=== PATIENT | female | born 1960 | race Caucasian/White ===

== ENCOUNTER 2021-10-24 08:54 | Day surgery (SDC) | payer BC ==
[2021-10-24] MEDS ORDERED: Marcaine Mpf 0.5% Vial 30 Ml IJ ONE (08:55)
[2021-10-24] MEDS ORDERED: CEFAZOLIN 2 GM-D5W BAG** 2 GM/50 ML ML IV SCH (09:00)
[2021-10-24] MEDS ORDERED: Lactated Ringers 1,000 ML IV SCH (09:00)
[2021-10-24] MEDS ORDERED: Lactated Ringers 1,000 ML IV ONE ×2 (09:01→11:34)
[2021-10-24] MEDS ORDERED: CEFAZOLIN 2 GM-D5W BAG** 2 GM/50 ML ML IV ONE (09:01)
[2021-10-24 09:32] LABS: ALBUMIN 4.4 g/dL (3.5-5.0); ALKALINE PHOSPHATASE 96 U/L (38-126); ANION GAP 11.2 MEQ/L (5-15); BLOOD UREA NITROGEN 20 mg/dL (7-17); CHLORIDE 104 mmol/L (98-107); Carbon Dioxide 28 mmol/L (22-30); Creatinine 1 0.75 mg/dL (0.52-1.04); EST GLOMERULAR FILTRATION RATE > 60.0 ML/MIN; Glucose 91 mg/dL (74-106); Potassium 4.2 mmol/L (3.5-5.1); SGOT/AST 21 U/L (14-36); SGPT/ALT 16 U/L (0-35); SODIUM 140 mmol/L (137-145); Total Protein 7.3 g/dL (6.3-8.2)
[2021-10-24] MEDS ORDERED: XYLOCAINE 1% HCL 20 ML MDV ONE (11:34)
[2021-10-24] MEDS ORDERED: Versed 2 MG/2 ML Injection ONE (11:57)
[2021-10-24] MEDS ORDERED: Xylocaine-Mpf 2% 5 Ml Vial ONE (11:57)
[2021-10-24] MEDS ORDERED: Zofran 4 MG/2 ML VIAL ONE (11:57)
[2021-10-24] MEDS ORDERED: DIPRIVAN 200 MG/20 ML IV ONE (11:57)
[2021-10-24] MEDS ORDERED: SUBLIMAZE 100 MCG/2 ML ONE (11:57)
[2021-10-24] MEDS ORDERED: TORAdol 30 mg Injection ONE (13:35)
--- NOTE | 2021-10-24 13:56 | XRAY ---
Indication: Right midfoot exostectomy. Intraoperative fluoroscopy provided for 31 seconds. 3 digital spot images submitted for interpretation demonstrate exostectomy medial first cuneiform. Correlate with intraoperative findings/report.
[2021-10-24 14:29] VITALS: O2SAT 96
[2021-10-24 15:06] VITALS: BP 158/93; PULSE 56
--- NOTE | 2021-10-24 22:38 | XRAY ---
31 seconds of fluoroscopy was used in surgery for a right midfoot exostectomy.
--- NOTE | 2021-10-28 13:24 | OP ---
SURGERY DATE/TIME: 10/24/2021 1258 PREOPERATIVE DIAGNOSES: 1) Pain right foot. 2) Osteoarthritis of mid foot. 3) Ingrown toenail. POSTOPERATIVE DIAGNOSES: 1) Pain right foot. 2) Osteoarthritis of mid foot. 3) Ingrown toenail. PROCEDURES: 1) Evacuation of nail matrixectomy with Zadik procedure. 2) Exostectomy of mid foot medial cuneiform. 3) Exostectomy of metatarsal base. SURGEON: Atif Payton DPM. CLOTH BALE HEADER: None. ANESTHESIA: Monitored anesthesia care with preoperative block consisting of Samaniego block to the right foot. ESTIMATED BLOOD LOSS: Less than 3 cc. MATERIALS: 4-0 Monocryl, 3-0 Nylon. INJECTABLES: 30 cc of 1:1 mixture of 1% lidocaine plain and 0.5% bupivacaine plain injected in a Samaniego block-type fashion. INDICATIONS FOR PROCEDURE: Monalisa is a very pleasant 61-year-old female known to my service for ingrown toenails to the right medial border. The patient did fail a matrixectomy a long while back with remainder of the nail still continuing to grow out with the use of 89% phenol. The patient also does have spurring of the dorsal aspect of the mid foot coming out to the base of the first metatarsal as well as the medial cuneiform. From that standpoint the patient wished to proceed with surgical intervention in order to eliminate the pain which she was experiencing at the dorsal aspect of the foot and as well as the ingrown toenail of the right foot. For those reasons all risks, complications and benefits of surgical intervention were discussed with the patient at length including but not limited to infection, hematoma, seroma, possibility of failure of surgical intervention and possibility of need for surgical intervention at a later date. The patient understands all of these risks and wishes to proceed. No guarantees were provided as to the outcome of the surgical intervention. Plenty of time was allowed for her and her to ask questions which were answered to their apparent satisfaction. No guarantees were provided as to the outcome. It is with that we decided to proceed. DESCRIPTION OF PROCEDURE AND FINDINGS: The patient was brought into the OR and placed on the OR table in the supine position. At this time MAC anesthesia was administered until the patient was lightly sedated. Ankle tourniquet was applied to the patient's right foot. The foot was then prepped and draped in typical sterile fashion and lowered onto the surgical field. At this time a Samaniego block was performed utilizing 30 cc of a 1:1 mixture of 1% lidocaine plain and 0.5% bupivacaine plain. At this time the Zadik portion of the procedure was performed where a diagonal incision was made at the apex of the nail matrix. At this time a Redwood was utilized to lift the nail from the nail bed. The nail matrix was identified and incised utilizing a 15 blade. The under surface of the nail fold was curetted, rongeured and removed utilizing a 15 blade. Following this cauterization took place utilizing a Bovie. Two simple interrupted stitches were applied at the base of the nail bed. Following this attention was directed to the dorsal medial aspect of the right foot where the spur was easily identified through palpation of the skin. At this time an incision was made utilizing a 15 blade which was deepened along the fascial plane utilizing a combination of sharp and blunt dissection being careful not to damage neurovascular structures. At this time the exostosis was identified and removed utilizing rongeurs and the surface was smoothed down with a rasp. At this time copious amounts of sterile saline were utilized to flush the surgical site. The subcutaneous skin was coapted utilizing 4-0 Monocryl, 3-0 Nylon in horizontal mattress-type fashion utilized to coapt the skin. Dressing consisting of Betadine, Adaptic, 4x4, Kerlix and NANDO was applied to the patient's right lower extremity. The tourniquet was let down at 17 total tourniquet minutes. The patient was reversed from anesthesia and returned to the postoperative anesthesia care unit with vital signs stable and vascular status intact. The patient handled the anesthesia as well as the surgery without complication. Postoperative orders as indicated in the patient's discharge chart.
== END 2021-10-24 15:00 | disposition home or self-care (01) ==
LOC: SDC 08:54
PROVIDERS: ATTEND Podiatrist Foot & Ankle Surgery
DX: M19.071 Primary osteoarthritis, right ankle and foot (principal); M79.671 Pain in right foot; L60.0 Ingrowing nail
CPT/HCPCS: 11750; 28122; 36415; 73630; 76000; 80053; J0690; J1885; J2250; J2405; J2704; J3010

== ENCOUNTER 2022-06-29 10:13 | Day surgery (SDC) | payer BC ==
[2022-06-29] MEDS ORDERED: Lactated Ringers 1,000 ML IV SCH (11:00)
[2022-06-29] MEDS ORDERED: DIPRIVAN 200 MG/20 ML IV ONE ×3 (12:48→13:10)
[2022-06-29] MEDS ORDERED: Versed 2 MG/2 ML Injection ONE (12:49)
[2022-06-29 14:13] VITALS: BP 135/61; PULSE 52; O2SAT 99
--- NOTE | 2022-07-01 08:40 | OP ---
PROCEDURE DATE/TIME: 06/29/2022 1251 PREOPERATIVE DIAGNOSIS: Surveillance, history of polyps. POSTOPERATIVE DIAGNOSES: 1) Acute diverticulitis of the sigmoid colon. 2) Multiple colonic polyps. PROCEDURES: 1) Colonoscopy with cold snare polypectomy. 2) Cold forceps polypectomy. PROCEDURE PERFORMED BY: Merry Hernandez M.D. ANESTHESIA: MAC. ESTIMATED BLOOD LOSS: Minimal. COMPLICATIONS: None. SPECIMEN: Proximal ascending colon polyp and sessile sigmoid polyp. PROCEDURE DETAILS: This is a 62-year-old female who presents for colonoscopy for the history of polyps. All risks, benefits, alternatives, H&P and consent have all been personally discussed with her. She understands, all of her questions have been answered and she would like to proceed. DESCRIPTION OF PROCEDURE: She was brought back to the endoscopy suite and laid in the left lateral decubitus position. A complete time out performed. First a rectal exam was done and then the scope was inserted and gently advanced to the level of the cecum. The findings are as follows: The patient had multiple diverticula most significant in the sigmoid colon. She had clear inflammation of a diverticula that was identified as we withdrew the scope at 27 cm, this was not identified as the scope was inserted. She did have some liquid stool throughout her colon as well as small solid stool balls but overall her prep was satisfactory and we were able to see 90% of the mucosa. She also had two polyps that were identified, one was in the proximal ascending colon which was small less than 5 mm taken with cold snare, removed in its entirety and sent to pathology. She also had another polyp in the sigmoid colon that was small and sessile this one was immediately adjacent to a diverticula. It was taken with cold forceps with three passes with full removal this was at about 25 cm. This polyp looked very benign. We resurveyed the area and it was hemostatic. It has been fully removed and then we further withdrew the scope. The rectum was normal. The most concerning finding here as we withdrew the scope near the last sigmoid polyp identified, she definitely did have what appeared to be diverticulitis at 27 cm. There was a small amount of fibrinous exudate here as well as some erythema and this only involved one diverticula. Due to the finding, I did place her on antibiotics to go home with. The diverticulitis does appear to be a very mild case. She was completely asymptomatic. She was also given instructions for a soft diet. She and her had their procedures immediately after each other. I discussed her findings of the diverticulitis with her prior to his procedure and then I also left instructions for nursing and offered for them to wait until they were both alert to discuss the findings with them since they did not have family or a friend present for me to talk to but they discussed this with their nurse and elected to go home. We did have instructions so they can contact me if there are any questions or any concerns. They have been instructed on what to look out for in regards to symptoms. She will also be seen in the office for follow up.
== END 2022-06-29 14:35 | disposition home or self-care (01) ==
LOC: SDC 10:13
PROVIDERS: ATTEND Surgery
DX: Z12.11 Encounter for screening for malignant neoplasm of colon (principal); Z86.010 Personal history of colon polyps; D12.5 Benign neoplasm of sigmoid colon; D12.2 Benign neoplasm of ascending colon; K57.30 Diverticulosis of large intestine without perforation or abscess without bleeding
CPT/HCPCS: J2250; J2704

== ENCOUNTER 2023-05-23 21:26 | Emergency (ER) | payer BC ==
[2023-05-23 22:46] VITALS: TEMP 98.9
--- NOTE | 2023-05-23 23:11 | ERPHSYRPT ---
- History of Present Illness Time Seen by Provider: 05/23/23 22:55 Historian: patient Exam Limitations: no limitations Patient Subjective Stated Complaint: RLQ pain x1 week worsening this afternoon, stated fever at home Triage Nursing Assessment: pt ambulatory to bed by self with steady gait, pt alert and oriented x3, skin pwd, pt c/o RLQ pain x1 week but worsening pain this afternoon, pt states a fever of 103 at home, pt afebrile at this time, pt last oral intake was 2100, BM was today with no abnormalities for patient, active bowel sounds in all quadrants, tender upon palpation in RLQ Physician History: For the past 2 days pt has had constant dull RLQ abdominal pain up to a 9/10 in severity with movement. Pt also states she has had diarrhea without blood and a frontal headache for 2 days 6 days ago; also a cough productive of green phlegm for the past 6 days and fever today of 101.3 degrees. Allergies/Adverse Reactions: No Known Drug Allergies Allergy (Verified 05/23/23 22:37) Home Medications: Atorvastatin Calcium [Lipitor] 20 mg PO HS 10/24/21 [History] Escitalopram Oxalate [Lexapro] 20 mg PO DAILY 10/24/21 [History] Hydrochlorothiazide 25 mg [hydroDIURIL 25 MG] 25 mg PO DAILY 10/24/21 [History] Potassium Chloride Tab* [Klor Con] 10 meq PO DAILY 10/24/21 [History] Ergocalciferol (Vitamin D2) [Vitamin D2] 50,000 unit PO Q7D 06/29/22 [History] Hx Tetanus, Diphtheria Vaccination/Date Given: Yes Hx Influenza Vaccination/Date Given: Yes Hx Pneumococcal Vaccination/Date Given: No Immunizations Up to Date: No Travel Risk - International Travel Have you traveled outside of the country in past 3 weeks: No - Emerging Infectious Disease Are you exhibiting symptoms associated with any current EIDs: Yes Symptoms: Abdominal Pain, Fever - Review of Systems Constitutional: Fever Respiratory: Cough, No Dyspnea Cardiac: No Chest Pain Abdominal/Gastrointestinal: Abdominal Pain, Diarrhea, No Vomiting Genitourinary Symptoms: No Dysuria Neurological: Headache - Past Medical History Pertinent Past Medical History: Yes Neurological History: No Pertinent History ENT History: No Pertinent History Cardiac History: Hypertension Respiratory History: No Pertinent History Endocrine Medical History: No Pertinent History Musculoskeletal History: Arthritis GI Medical History: Diverticulitis History: No Pertinent History Psycho-Social History: Anxiety, Depression Female Reproductive Disorders: No Pertinent History Other Medical History: CLL - Past Surgical History Past Surgical History: Yes Neuro Surgical History: No Pertinent History Cardiac: No Pertinent History Respiratory: No Pertinent History Gastrointestinal: No Pertinent History Genitourinary: No Pertinent History Musculoskeletal: Orthopedic Surgery Female Surgical History: Section, Tubal Ligation Other Surgical History: hx knee scope, foot surgery 2021, wrist surgery 01/2022 - Social History Smoking Status: Never smoker Exposure to second hand smoke: No Drug Use: none - Nursing Vital Signs Nursing Vital Signs: Initial Vital Signs Temperature 98.9 F 05/23/23 22:37 Pulse Rate 86 05/23/23 22:37 Respiratory Rate 18 05/23/23 22:37 Blood Pressure 129/80 05/23/23 22:37 O2 Sat by Pulse Oximetry 98 05/23/23 22:37 Pain Scale Pain Intensity 4 - Physical Exam General Appearance: alert Eye Exam: eyes nml inspection Ears, Nose, Throat Exam: TMs normal, pharynx normal Neck Exam: normal inspection Respiratory Exam: lungs clear Cardiovascular Exam: normal heart sounds Gastrointestinal/Abdomen Exam: soft, normal bowel sounds, tenderness (moderate RLQ tenderness) Back Exam: normal inspection Neurologic Exam: alert, cooperative Skin Exam: warm, dry SpO2 Interpretation: normal SpO2: 98 O2 Delivery: Room Air - Radiology Exams Chest X-ray Interpretation: Interpreted by me, No Pneumonia - CT Exams Abdomen/Pelvis CT Interpretation: Tele-radiologist Report (CT abd/pel reveals no acute abnormality. See rest of report.) - Radiology Ultrasound Exam Pelvis Ultrasound: Other (food science technician report: no ovarian torsion.) Ordered Tests: Active Orders 24 hr Category Date Time Status IV Insertion STAT Care 05/23/23 23:13 Active ABDOMEN AND PELVIS W/0 CONTRAS [CT] Stat Exams 05/23/23 23:14 Completed CHEST 1 VIEW (PORTABLE) Stat Exams 05/23/23 23:14 Taken PELVIS TRANS VAGINAL [US] Stat Exams 05/24/23 00:58 Ordered AMYLASE Stat Lab 05/23/23 23:30 Completed CBC W DIFF Stat Lab 05/23/23 23:30 Results CBC W DIFF Stat Lab 05/24/23 01:10 Completed CMP Stat Lab 05/23/23 23:30 Completed LIPASE Stat Lab 05/23/23 23:30 Completed Lactic Acid Stat Lab 05/24/23 01:29 Completed MAGNESIUM Stat Lab 05/23/23 23:30 Completed MONO SCREEN Stat Lab 05/24/23 01:10 Completed Manual Differential NC Stat Lab 05/23/23 23:30 Results Pathologist Review Stat Lab 05/23/23 23:30 Results UA W/RFX UR CULTURE Stat Lab 05/23/23 23:18 Completed Medication Summary Generic Name Dose Route Start Last Admin Trade Name Freq PRN Reason Stop Dose Admin Sodium Chloride 1,000 mls @ 100 mls/hr 05/23/23 23:15 05/24/23 01:22 Sodium Chloride 0.9% 1000 Ml IV 06/22/23 23:14 Infused .Q10H FREDA Infusion Discontinued Medications Generic Name Dose Route Start Last Admin Trade Name Freq PRN Reason Stop Dose Admin Sodium Chloride 1,000 mls @ 999 mls/hr 05/24/23 00:27 05/24/23 00:32 Sodium Chloride 0.9% 1000 Ml IV 05/24/23 01:27 Not Given .Q1H1M STA Morphine Sulfate 2 mg 05/23/23 23:13 05/23/23 23:22 Morphine Sulfate 2 Mg/Ml Inj IV 05/23/23 23:14 2 mg STAT ONE Administration Morphine Sulfate Confirm 05/23/23 23:19 Morphine Sulfate 2 Mg/Ml Inj Administered 05/23/23 23:20 Dose 2 mg .ROUTE .STK-MED ONE Lab/Rad Data: Laboratory Result Diagrams 05/24/23 01:10 05/23/23 23:30 Laboratory Results 05/24/23 05/24/23 05/24/23 Range/Units 01:29 01:10 01:10 WBC 19.9 H (4.0-10.5) x10^3/uL RBC 4.28 (4.1-5.4) x10^6/uL Hgb 12.0 (12.0-16.0) g/dL Hct 38.1 (35-47) % MCV 89.0 (78-100) fL MCH 28.0 (26-32) pg MCHC 31.5 L (32-36) g/dL RDW 14.3 H (11.5-14.0) % Plt Count 227 (150-450) x10^3/uL MPV 8.8 (7.5-11.0) fL Gran % 27.3 L (36.0-66.0) % Immature Gran % (Auto) 0.3 (0.00-0.4) % Nucleat RBC Rel Count 0.0 (0.00-0.1) % Eos # (Auto) 0.15 (0-0.5) x10^3/uL Immature Gran # (Auto) 0.05 H (0.00-0.03) x10^3u/L Absolute Lymphs (auto) 13.16 H (1.0-4.6) x10^3/uL Absolute Monos (auto) 1.03 (0.0-1.3) x10^3/uL Absolute Nucleated RBC 0.00 (0.00-0.01) x10^3u/L Lymphocytes % 66.1 H (24.0-44.0) % Monocytes % 5.2 (0.0-12.0) % Eosinophils % 0.8 (0.00-5.0) % Basophils % 0.3 (0.0-0.4) % Absolute Granulocytes 5.48 (1.4-6.9) x10^3/uL Segmented Neutrophils (36.0-66.0) % Lymphocytes (Manual) (24-44) % Monocytes (Manual) (0.0-12.0) % Eosinophils (Manual) (0.00-3.0) % Basophils # 0.05 (0-0.4) x10^3/uL Platelet Estimate (NORMAL) RBC Morphology Smear Path Review Sodium (135-145) mmol/L Potassium (3.5-5.1) mmol/L Chloride (98-107) mmol/L Carbon Dioxide (22-30) mmol/L Anion Gap (5-15) MEQ/L BUN (7-17) mg/dL Creatinine (0.52-1.04) mg/dL Estimated GFR ML/MIN Glucose (74-106) mg/dL Lactic Acid 0.9 (0.4-2.0) Calcium (8.4-10.2) mg/dL Magnesium (1.6-2.3) mg/dL Total Bilirubin (0.2-1.3) mg/dL AST (14-36) U/L ALT (0-35) U/L Alkaline Phosphatase (38-126) U/L Serum Total Protein (6.3-8.2) g/dL Albumin (3.5-5.0) g/dL Amylase (30-110) U/L Lipase (23-300) U/L Urine Color (Yellow) Urine Appearance (Clear) Urine pH (4.6-8.0) Ur Specific [employer] (1.005-1.030) Urine Protein (Negative) Urine Glucose (UA) (Negative) mg/dL Urine Ketones (Negative) Urine Blood (Negative) Urine Nitrite (Negative) Urine Bilirubin (Negative) Urine Urobilinogen (0.2) mg/dL Ur Leukocyte Esterase (Negative) U Hyaline Cast (Auto) (0-2) /LPF Urine Microscopic RBC (0-5) /HPF Urine Microscopic WBC (0-5) /HPF Ur Epithelial Cells (None Seen) /HPF Urine Bacteria (None Seen) /HPF Urine Culture Reflexed (NO) Monoscreen WEAKLY POSITIVE A (NEGATIVE) Influenza Type A Ag (NEGATIVE) Influenza Type B Ag (NEGATIVE) RSV (PCR) (NEGATIVE) SARS-CoV-2 (PCR) (NEGATIVE) Group A Strep Antibody (NEGATIVE) Slides for Path Review YES 05/24/23 05/24/23 05/23/23 Range/Units 01:00 01:00 23:30 WBC (4.0-10.5) x10^3/uL RBC (4.1-5.4) x10^6/uL Hgb (12.0-16.0) g/dL Hct (35-47) % MCV (78-100) fL MCH (26-32) pg MCHC (32-36) g/dL RDW (11.5-14.0) % Plt Count (150-450) x10^3/uL MPV (7.5-11.0) fL Gran % (36.0-66.0) % Immature Gran % (Auto) (0.00-0.4) % Nucleat RBC Rel Count (0.00-0.1) % Eos # (Auto) (0-0.5) x10^3/uL Immature Gran # (Auto) (0.00-0.03) x10^3u/L Absolute Lymphs (auto) (1.0-4.6) x10^3/uL Absolute Monos (auto) (0.0-1.3) x10^3/uL Absolute Nucleated RBC (0.00-0.01) x10^3u/L Lymphocytes % (24.0-44.0) % Monocytes % (0.0-12.0) % Eosinophils % (0.00-5.0) % Basophils % (0.0-0.4) % Absolute Granulocytes (1.4-6.9) x10^3/uL Segmented Neutrophils (36.0-66.0) % Lymphocytes (Manual) (24-44) % Monocytes (Manual) (0.0-12.0) % Eosinophils (Manual) (0.00-3.0) % Basophils # (0-0.4) x10^3/uL Platelet Estimate (NORMAL) RBC Morphology Smear Path Review Sodium (135-145) mmol/L Potassium (3.5-5.1) mmol/L Chloride (98-107) mmol/L Carbon Dioxide (22-30) mmol/L Anion Gap (5-15) MEQ/L BUN (7-17) mg/dL Creatinine (0.52-1.04) mg/dL Estimated GFR ML/MIN Glucose (74-106) mg/dL Lactic Acid (0.4-2.0) Calcium (8.4-10.2) mg/dL Magnesium 2.0 (1.6-2.3) mg/dL Total Bilirubin (0.2-1.3) mg/dL AST (14-36) U/L ALT (0-35) U/L Alkaline Phosphatase (38-126) U/L Serum Total Protein (6.3-8.2) g/dL Albumin (3.5-5.0) g/dL Amylase (30-110) U/L Lipase (23-300) U/L Urine Color (Yellow) Urine Appearance (Clear) Urine pH (4.6-8.0) Ur Specific [employer] (1.005-1.030) Urine Protein (Negative) Urine Glucose (UA) (Negative) mg/dL Urine Ketones (Negative) Urine Blood (Negative) Urine Nitrite (Negative) Urine Bilirubin (Negative) Urine Urobilinogen (0.2) mg/dL Ur Leukocyte Esterase (Negative) U Hyaline Cast (Auto) (0-2) /LPF Urine Microscopic RBC (0-5) /HPF Urine Microscopic WBC (0-5) /HPF Ur Epithelial Cells (None Seen) /HPF Urine Bacteria (None Seen) /HPF Urine Culture Reflexed (NO) Monoscreen (NEGATIVE) Influenza Type A Ag NEGATIVE (NEGATIVE) Influenza Type B Ag NEGATIVE (NEGATIVE) RSV (PCR) NEGATIVE (NEGATIVE) SARS-CoV-2 (PCR) NEGATIVE (NEGATIVE) Group A Strep Antibody NOT DETECTED (NEGATIVE) Slides for Path Review 05/23/23 05/23/23 05/23/23 Range/Units 23:30 23:30 23:18 WBC 22.4 H (4.0-10.5) x10^3/uL RBC 4.71 (4.1-5.4) x10^6/uL Hgb 13.1 (12.0-16.0) g/dL Hct 41.2 (35-47) % MCV 87.5 (78-100) fL MCH 27.8 (26-32) pg MCHC 31.8 L (32-36) g/dL RDW 14.3 H (11.5-14.0) % Plt Count 279 (150-450) x10^3/uL MPV 9.0 (7.5-11.0) fL Gran % 28.5 L (36.0-66.0) % Immature Gran % (Auto) 0.3 (0.00-0.4) % Nucleat RBC Rel Count 0.0 (0.00-0.1) % Eos # (Auto) 0.16 (0-0.5) x10^3/uL Immature Gran # (Auto) 0.07 H (0.00-0.03) x10^3u/L Absolute Lymphs (auto) 14.79 H (1.0-4.6) x10^3/uL Absolute Monos (auto) 0.95 (0.0-1.3) x10^3/uL Absolute Nucleated RBC 0.00 (0.00-0.01) x10^3u/L Lymphocytes % 66.0 H (24.0-44.0) % Monocytes % 4.2 (0.0-12.0) % Eosinophils % 0.7 (0.00-5.0) % Basophils % 0.3 (0.0-0.4) % Absolute Granulocytes 6.37 (1.4-6.9) x10^3/uL Segmented Neutrophils 20 L (36.0-66.0) % Lymphocytes (Manual) 76 H (24-44) % Monocytes (Manual) 3 (0.0-12.0) % Eosinophils (Manual) 1 (0.00-3.0) % Basophils # 0.06 (0-0.4) x10^3/uL Platelet Estimate NORMAL (NORMAL) RBC Morphology NORMAL Smear Path Review Pending Sodium 137 (135-145) mmol/L Potassium 3.5 (3.5-5.1) mmol/L Chloride 104 (98-107) mmol/L Carbon Dioxide 23 (22-30) mmol/L Anion Gap 13.9 (5-15) MEQ/L BUN 28 H (7-17) mg/dL Creatinine 0.83 (0.52-1.04) mg/dL Estimated GFR 80.7 ML/MIN Glucose 112 H (74-106) mg/dL Lactic Acid (0.4-2.0) Calcium 9.1 (8.4-10.2) mg/dL Magnesium (1.6-2.3) mg/dL Total Bilirubin 0.40 (0.2-1.3) mg/dL AST 27 (14-36) U/L ALT 25 (0-35) U/L Alkaline Phosphatase 102 (38-126) U/L Serum Total Protein 7.3 (6.3-8.2) g/dL Albumin 4.1 (3.5-5.0) g/dL Amylase 50 (30-110) U/L Lipase 41 (23-300) U/L Urine Color Yellow (Yellow) Urine Appearance Clear (Clear) Urine pH 5.0 (4.6-8.0) Ur Specific [employer] 1.025 (1.005-1.030) Urine Protein Negative (Negative) Urine Glucose (UA) Negative (Negative) mg/dL Urine Ketones Negative (Negative) Urine Blood Negative (Negative) Urine Nitrite Negative (Negative) Urine Bilirubin Negative (Negative) Urine Urobilinogen 0.2 (0.2) mg/dL Ur Leukocyte Esterase Negative (Negative) U Hyaline Cast (Auto) NONE SEEN (0-2) /LPF Urine Microscopic RBC 0-2 (0-5) /HPF Urine Microscopic WBC 0-2 (0-5) /HPF Ur Epithelial Cells None Seen (None Seen) /HPF Urine Bacteria None Seen (None Seen) /HPF Urine Culture Reflexed NO (NO) Monoscreen (NEGATIVE) Influenza Type A Ag (NEGATIVE) Influenza Type B Ag (NEGATIVE) RSV (PCR) (NEGATIVE) SARS-CoV-2 (PCR) (NEGATIVE) Group A Strep Antibody (NEGATIVE) Slides for Path Review - Progress Counseled pt/family regarding: lab results, diagnosis, need for follow-up Medical Desision Making - Diagnostic Testing Diagnostic test were ordered, analyzed, and reviewed by me: Yes Radiological Interpretation: Interpreted by me, Teleradiologist Report - Departure Departure Disposition: Home Clinical Impression: Abdominal pain, CLL (chronic lymphocytic leukemia), Infectious mononucleosis Condition: Stable Critical Care Time: No Referrals: BLANCA MCKEON MD [Primary Care Provider] - Follow up/PCP as directed Instructions: Severe Abdominal Pain, Adult (DC), Mononucleosis (DC), Diarrhea and Traveler's Diarrhea, Adult (DC) Additional Instructions: Follow up with private doctor tomorrow. Forms: Work/School Release Form
[2023-05-23] MEDS ORDERED: Sodium Chloride 0.9% 1000 ML 1,000 ML ONE (23:19)
[2023-05-23] MEDS ORDERED: MORPHINE SULFATE 2 MG INJ ONE (23:19)
[2023-05-23] MEDS: MORPHINE SULFATE 2 MG INJ IV ONE (23:22)
[2023-05-23] MEDS: Sodium Chloride 0.9% 1000 ML 1,000 ML IV SCH (23:22)
[2023-05-23 23:35] LABS: Appearance Clear (Clear); Bacteria None Seen /HPF (None Seen); Bilirubin Negative (Negative); Blood Negative (Negative); Epithelial Cells None Seen /HPF (None Seen); Glucose, Urine Negative (Negative); Hyaline Casts NONE SEEN /LPF (0-2); Ketones Negative (Negative); Leukocyte Esterase Negative (Negative); Nitrite Negative (Negative); Protein,Urine Dip Negative (Negative); RBC 0-2 /HPF (0-5); Specific Gravity 1.025 (1.005-1.030); Urobilinogen 0.2 mg/dL (0.2); WBC 0-2 /HPF (0-5)
[2023-05-23 23:38] LABS: Absolute Neutrophil Ct (ANC) 6.37 x10^3/uL (1.4-6.9); BASOPHIL % 0.3 % (0.0-0.4); Basophil (Absolute #) 0.06 x10^3/uL (0-0.4); Eosinophil % 0.7 % (0.00-5.0); Eosinophil (Absolute #) 0.16 x10^3/uL (0-0.5); Hematocrit 41.2 % (35-47); Hemoglobin 13.1 g/dL (12.0-16.0); IMMATURE GRAN # 0.07 x10^3u/L (0.00-0.03); IMMATURE GRAN % 0.3 % (0.00-0.4); Lymphocyte (Absolute #) 14.79 x10^3/uL (1.0-4.6); Mean Cell Volume 87.5 fL (78-100); Mean Corpuscular Hemoglobin 27.8 pg (26-32); Mean Corpuscular Hgb Concent. 31.8 g/dL (32-36); Monocyte (Absolute #) 0.95 x10^3/uL (0.0-1.3); Monocytes % 4.2 % (0.0-12.0); Neutrophil % 28.5 % (36.0-66.0); Platelet Count 279 x10^3/uL (150-450); Red Blood Count 4.71 x10^6/uL (4.1-5.4); Red Cell Distribution Width 14.3 % (11.5-14.0); White Blood Count 22.4 x10^3/uL (4.0-10.5)
[2023-05-23 23:40] LABS: ADD URINE CULTURE? NO (NO)
[2023-05-23 23:42] LABS: ALBUMIN 4.1 g/dL (3.5-5.0); ANION GAP 13.9 MEQ/L (5-15); BILIRUBIN,TOTAL 0.4 mg/dL (0.2-1.3); Calcium 9.1 mg/dL (8.4-10.2); Creatinine 1 0.83 mg/dL (0.52-1.04); EST GLOMERULAR FILTRATION RATE 80.7 ML/MIN; Potassium 3.5 mmol/L (3.5-5.1); Total Protein 7.3 g/dL (6.3-8.2)
[2023-05-24] MEDS: Sodium Chloride 0.9% 1000 ML 1,000 ML IV STA (00:32)
[2023-05-24 00:39] LABS: Eosinophil 1 % (0.00-3.0); Lymphocytes 76 % (24-44); Monocyte 3 % (0.0-12.0); Neutrophils 20 % (36.0-66.0); Platelet Estimate NORMAL (NORMAL); Total Cells Counted 100
--- NOTE | 2023-05-24 00:49 | XRAY ---
CLINICAL HISTORY: RLQ pain COMPARISON: None TECHNIQUE: Axial CT images of the abdomen and pelvis were acquired without intravenous contrast. Coronal and sagittal reformats provided. One of the following dose reduction techniques were utilized for this exam: Automated exposure control, adjustment of the mA and/or kV according to patient size, and use of iterative reconstruction. FINDINGS: Within the limitations of this unenhanced study, the liver appears unremarkable. No intrahepatic or extrahepatic bile duct dilation. Unremarkable appearing gallbladder with no stones wall thickening or pericholecystic inflammatory changes or fluid. The spleen, pancreas, adrenal glands are unremarkable. There is suggestion of a partial duplex collecting system in the left kidney with fullness of the pelvicaliceal system, however, no obstructing calculus is identified. Otherwise, the kidneys appear unremarkable. No renal calculus is seen. Left renal cortical cyst is noted. The ureters are normal with no stones. Prominent left para-aortic lymph node with intact fatty hilum measures 1 cm in short axis. Bladder is unremarkable with no stones. Pelvic viscera appear unremarkable. The stomach appears unremarkable. Unremarkable appearing duodenum. Unprepared small bowel and colon are non-distended with no gross abnormality. Appendix appears unremarkable. No ascites. No free intraperitoneal air is seen. Visualized lung bases are clear except for a 2 mm right basal calcified granuloma. Mild degenerative changes seen in the visualized spine. IMPRESSION: 1. CT abdomen and pelvis reveals no acute abnormality. 2. There is suggestion of a partial duplex collecting system in the left kidney with fullness of the pelvicaliceal system, however, no obstructing calculus is identified. 3. Prominent left para-aortic lymph node. Electronically Signed by: Kalpesh Vidales MD. (05/24/2023 00:44:50 EDT)
[2023-05-24 01:18] LABS: Absolute Neutrophil Ct (ANC) 5.48 x10^3/uL (1.4-6.9); BASOPHIL % 0.3 % (0.0-0.4); Basophil (Absolute #) 0.05 x10^3/uL (0-0.4); Eosinophil % 0.8 % (0.00-5.0); Eosinophil (Absolute #) 0.15 x10^3/uL (0-0.5); Hematocrit 38.1 % (35-47); IMMATURE GRAN # 0.05 x10^3u/L (0.00-0.03); IMMATURE GRAN % 0.3 % (0.00-0.4); Lymphocyte (Absolute #) 13.16 x10^3/uL (1.0-4.6); Lymphocytes % 66.1 % (24.0-44.0); Mean Corpuscular Hgb Concent. 31.5 g/dL (32-36); Mean Platelet Volume 8.8 fL (7.5-11.0); Monocyte (Absolute #) 1.03 x10^3/uL (0.0-1.3); Monocytes % 5.2 % (0.0-12.0); Neutrophil % 27.3 % (36.0-66.0); Platelet Count 227 x10^3/uL (150-450); Red Blood Count 4.28 x10^6/uL (4.1-5.4); Red Cell Distribution Width 14.3 % (11.5-14.0); White Blood Count 19.9 x10^3/uL (4.0-10.5)
[2023-05-24 01:54] LABS: INFLUENZA A NEGATIVE (NEGATIVE); INFLUENZA B NEGATIVE (NEGATIVE); RESPIRATORY SYNCTIAL VIRUS NEGATIVE (NEGATIVE); SARS-CoV-2 Xpert Express NEGATIVE (NEGATIVE)
[2023-05-24 01:57] LABS: Slide Review 1 YES
[2023-05-24 02:41] VITALS: BP 130/88; PULSE 72; RESP 18; O2SAT 99
--- NOTE | 2023-05-24 08:36 | XRAY ---
Indication: Cough. Comparison: None Portable apical lordotic chest inflated and clear. Focal eventration right hemidiaphragm. Heart not enlarged. Bony thorax intact with osteopenia and mild degenerative changes. Impression: Nonacute chest with chronic features.
--- NOTE | 2023-05-24 08:40 | XRAY ---
Indication: Right pelvic pain. Two-dimensional pelvic sonogram performed. Comparison: None Uterus anteverted measuring 8.1 x 4.0 x 3.2 cm. Incidental 1 cm cervical nabothian cyst. No other focal solid/cystic uterine mass. Endometrial stripe measures 3.4 mm. No endometrial cavity mass or fluid collection. Right ovary measures 1.3 x 1.3 x 1.0 cm and left measures 1.7 x 1.4 x 1.5 cm. Normal follicular cysts and perfusion bilaterally. No suspicious adnexal mass or free fluid. Impression: Cervical nabothian cyst. Remaining transvaginal pelvic sonogram is negative. Comment: Preliminary report was given.
== END 2023-05-24 02:41 | disposition home or self-care (01) ==
LOC: ED 21:26
DX: C91.10 Chronic lymphocytic leukemia of B-cell type not having achieved remission (principal); B27.90 Infectious mononucleosis, unspecified without complication; R10.31 Right lower quadrant pain; R19.7 Diarrhea, unspecified; R51.9 Headache, unspecified; R05.1 Acute cough; R50.9 Fever, unspecified; I10 Essential (primary) hypertension; Z79.899 Other long term (current) drug therapy
CPT/HCPCS: 0241U; 36000; 36415; 71045; 74176; 76830; 80053; 81001; 82150; 83605; 83690; 83735; 85025; 86308; 87651; 96374; 99284; J2270